=== PATIENT | female | born 1980 | race Caucasian/White ===

== ENCOUNTER 2016-10-25 10:55 | Emergency (ER) | payer MEDICAID ==
--- NOTE | 2016-10-25 12:16 | EDPHY ---
H & P Stated Complaint: cough/cold sx x 2 weeks Time Seen by Provider: 10/25/16 12:01 HPI/ROS: CHIEF COMPLAINT: URI symptoms for 1 month HISTORY OF PRESENT ILLNESS: 35-year-old immunocompetent female complaining of 1 month of URI symptoms. Was seen by her PCP diagnosis of viral syndrome a few weeks ago. She is complaining of productive cough. No dyspnea. No back or flank pain. No chest pain. No abdominal pain PRIMARY CARE PROVIDER: REVIEW OF SYSTEMS: A ten point review of systems was performed and is negative with the exception of the items mentioned in the HPI PAST MEDICAL & SURGICAL HISTORY: No pertinent medical or surgical history SOCIAL HISTORY:Nonsmoker PHYSICAL EXAM (Prior to examination, patient consented to physical exam, hands were washed and my usual and customary physical exam procedures followed) 1) GENERAL: Well-developed, well-nourished, alert and oriented. Appears to be in no acute distress. 2) HEAD: Normocephalic, atraumatic 3) HEENT: Pupils equal, round, reactive to light bilaterally. Sclera anicteric. Nasopharynx, oropharynx, clear, no lesions.No tonsillar enlargement or exudate. Ears bilaterally with normal tympanic membranes. 4) NECK: Full range of motion, no meningeal signs. 5) LUNGS: Clear auscultation bilaterally, no wheezes, no rhonchi, no retractions. 6) HEART: Regular rate and rhythm, no murmur, no heave, no gallop. 7) ABDOMEN: No guarding, no rebound, no focal tenderness, 8) MUSCULOSKELETAL: No peripheral edema or discoloration. 9) BACK: No CVA tenderness 10) SKIN: No rash, no petechiae. DIFFERENTIAL DIAGNOSIS: In no particular include but limited to bronchitis, pneumonia, pertussis - Personal History LMP (Females 10-55): 8-14 Days Ago Current Tetanus Diphtheria and Acellular Pertussis (TDAP): Yes Tetanus Vaccine Date: 2013 - Medical/Surgical History Hx Asthma: No Hx Chronic Respiratory Disease: No Hx Diabetes: No Hx Cardiac Disease: No Hx Renal Disease: No Hx Cirrhosis: No Hx Alcoholism: No Hx HIV/AIDS: No Hx Splenectomy or Spleen Trauma: No Other PMH: seasonal allergies - Social History Smoking Status: Never smoked Constitutional: Initial Vital Signs Temperature (C) 36.6 C 10/25/16 11:08 Heart Rate 83 10/25/16 11:08 Respiratory Rate 18 10/25/16 11:08 Blood Pressure 124/93 H 10/25/16 11:08 O2 Sat (%) 95 10/25/16 11:08 O2 Delivery Mode Room Air Allergies/Adverse Reactions: No Known Allergies Allergy (Unverified 10/25/16 11:07) Home Medications: Medication Instructions Recorded AZITHROMYCIN [Z-PACK] 500 mg PO DAILY #1 packet 10/25/16 Flonase Nasal [place] 10/25/16 Medical Decision Making ED Course/Re-evaluation: This patient is maintaining normal saturations, has clear lungs bilaterally. Given the longevity of her symptoms I think that a trial of antibiotics is appropriate as I cannot rule out secondary bacterial infection. We also discussed possibility of pertussis as her symptoms have been occurring for a month now. I do not think that hospitalization is indicated. I do not think that chest x-ray indicated at this time. I have recommended pertussis testing and empiric treatment with azithromycin which should cover with pertussis and community-acquired pneumonia. She has been given usual and customary respiratory precautions - Data Points Laboratory Results: 10/25/16 11:20 Influenza Typ A,B (DFA) NEGATIVE FOR FLU (NEGATIVE) Departure - Departure Disposition: Home, Routine, Self-Care Clinical Impression: Upper respiratory infection Qualifiers: URI type: unspecified URI Qualifier Code: (J06.9) Acute upper respiratory infection, unspecified Condition: Good Instructions: Upper Respiratory Infection (ED) Referrals: Bre Gillis MD [Medical Doctor] - 5-7 days, call for appt. Prescriptions: AZITHROMYCIN [Z-PACK] 500 mg PO DAILY #1 packet
[2016-10-25 12:23] VITALS: BP 134/94; PULSE 76; RESP 20; TEMP 97.7; O2SAT 98
[2016-10-27 07:27] LABS: B.PARAPERTUSSIS PCR Negative (()); B.PERTUSSIS PCR Negative (())
== END 2016-10-25 12:22 | disposition home or self-care (01) ==
DX: J06.9 Acute upper respiratory infection, unspecified (principal)
CPT/HCPCS: 87798-90